=== PATIENT | female | born 1975 | race Caucasian/White ===

== ENCOUNTER 2017-01-19 13:41 | Emergency (ER) | payer SELFPAY ==
[~2017-01-19] VITALS: Ht 154.9 cm; Wt 69.9 kg
[2017-01-19 14:24] VITALS: BP 145/85
--- NOTE | 2017-01-19 16:19 | ED EENT ---
History of Present Illness General Chief Complaint: Dental Problems/Pain Stated Complaint: L SIDE DENTAL PAIN Nursing Triage Note: PT C/O L LOWER BACK TOOTH PAIN AND SWELLING. Source: patient Exam Limitations: no limitations History of Present Illness Time seen by provider: 16:19 Initial Comments 41-year-old female patient presents to the emergency department complains of left lower dental pain and swelling of the gums. Reports 2 weeks ago she remembers a chip of the tooth coming off. Since then has had increasing pain and swelling. Timing/Duration: abrupt Location: dental Prearrival Treatment: over the counter meds Modifying Factors: Worse With Other (worse with cold liquids and foods) Allergies and Home Medications Allergies Coded Allergies: hydrocodone (Verified Adverse Reaction, Unknown, n/v, 01/19/17) Review of Systems Constitutional: No chills, No fever, No malaise Eyes: No Symptoms Reported Ears: No Symptoms Reported Nose: no symptoms reported Mouth: see HPI, pain, swelling Throat: denies pain, denies swelling Respiratory: no symptoms reported Cardiovascular: no symptoms reported Gastrointestinal: No abdominal pain, No diarrhea, loss of appetite, No nausea, No vomiting Skin: no symptoms reported Neurological: No Symptoms Reported All Other Systems Reviewed Negative Unless Noted: Yes (Negative excepted noted.) Past Syaeghe-Iiuudx-Wxnddq Hx Patient Social History Alcohol Use: Denies Use Recreational Drug Use: No Smoking Status: Current Everyday Smoker Type Used: Cigarettes 2nd Hand Smoke Exposure: Yes Recent Foreign Travel: No Contact w/Someone Who Travel: No Recent Infectious Disease Expo: No Recent Hopitalizations: No Physical Abuse: No Sexual Abuse: No Seasonal Allergies Seasonal Allergies: No Surgeries History of Surgeries: Yes Surgeries: Gallbladder Respiratory History of Respiratory Disorde: No Cardiovascular History of Cardiac Disorders: No Neurological History of Neurological Disord: No Gastrointestinal History of Gastrointestinal Di: No Psychosocial Suicide Risk Score: 0 Reviewed Nursing Assessment Reviewed/Agree w Nursing PMH: Yes Family Medical History Significant Family History: No Pertinent Family Hx Physical Exam Vital Signs Vital Sign - Last 12Hours 01/19/17 14:24 Temp 98.2 Pulse 75 Resp 16 B/P (MAP) 145/85 Pulse Ox 97 O2 Delivery Room Air General Appearance: WD/WN, no apparent distress Eyes: bilateral eye normal inspection, bilateral eye PERRL, bilateral eye EOMI Ears: bilateral ear auricle normal, bilateral ear canal normal, bilateral ear TM normal Nose: normal inspection Mouth/Throat: pharynx normal, dental tenderness (left lower dental tenderness with swelling of the gums. 1/2 of the filling missing from tooth #20 (left lower)), No excessive drooling, mandibular swelling (focal area of swelling over the left mandible at the location of dental infection.), No tonsillar swelling, No trismus, No uvula swelling, No voice changes Neck: full range of motion, supple, lymphadenopathy (R), lymphadenopathy (L) ( anterior cervical lymphadenopathy, tender to palpation.) Cardiovascular: regular rate, rhythm, no murmur Respiratory: lungs clear, normal breath sounds, no respiratory distress, no accessory muscle use Neurologic/Psychiatric: alert, normal mood/affect, oriented x 3 Skin: normal color, warm/dry Progress/Results/Core Measures Results/Orders My Orders Orders - SONG PÉREZ Ketorolac Injection (Toradol Injection) (01/19/17 16:31) Tramadol Tablet (Ultram Tablet) (01/19/17 16:31) Rocephin 1000mg Im (01/19/17 16:45) Lidocaine 1% Injection (Xylocaine 1% Inj (01/19/17 16:45) Vital Signs/I&O Vital Sign - Last 12Hours 01/19/17 14:24 Temp 98.2 Pulse 75 Resp 16 B/P (MAP) 145/85 Pulse Ox 97 O2 Delivery Room Air Blood Pressure Mean: 105 Departure Impression Impression: Primary Impression: Dental infection Additional Impression: Dental caries Disposition: 01 HOME, SELF-CARE Condition: Improved Departure-Patient Inst. Decision time for Depature: 16:38 Referrals: NO,LOCAL PHYSICIAN (PCP/Family) Primary Care Physician Patient Instructions: Tooth Abscess (DC), Dental Pain (DC) Add. Discharge Instructions: All discharge instructions reviewed with patient and/or family. Voiced understanding. Medications as instructed. Tylenol Extra Strength over-the- counter as directed for pain. Ibuprofen 800 mg by mouth every 8 hours as needed for pain. Ice packs or heating pads as needed for pain. Room temperature liquids. Follow-up with the dentist of your choice for recheck and dental repair. Return to the emergency department for worsened symptoms or any other concerns. Lidocaine with benzocaine gauze pads: Place 1 pad between the affected teeth and bite down gently for 5-10 minutes. Repeat 4 times daily as needed for dental pain. Do not lie down or fall asleep with gauze pads in your mouth due to risk of choking, intestinal obstruction, and . Scripts Ondansetron (Ondansetron Odt) 8 Mg Tab.rapdis 8 MG PO Q6H Y for NAUSEA/VOMITING-1ST LINE, #10 TAB 0 Refills Prov: SONG PÉREZ 01/19/17 Tramadol HCl (Tramadol HCl) 50 Mg Tablet 50 MG PO Q4H Y for pain, #20 TAB 0 Refills Prov: SONG PÉREZ 01/19/17 Amoxicillin (Amoxicillin) 500 Mg Capsule 1000 MG PO Q8H, #60 CAP 0 Refills Prov: SONG PÉREZ 01/19/17 Work/School Note: Local Medical Staff Listing, Work Release Form Date Seen in the Emergency Department: Jan 19, 2017 Return to Work: Jan 21, 2017 Restrictions: No Restrictions Images Head/Face 1 - Swelling, Tenderness Mouth/Nose 1 - Caries, Swelling, Tenderness SONG PÉREZ Jan 19, 2017 16:19
[2017-01-19] MEDS ORDERED: KETOROLAC 60 MG/2 ML VIAL IM STA (16:31)
[2017-01-19] MEDS ORDERED: ONDA8TAB13 PO (16:39)
[2017-01-19] MEDS ORDERED: TRAM50TA2 PO (16:39)
[2017-01-19] MEDS ORDERED: AMOX500C2 PO (16:39)
[2017-01-19] MEDS ORDERED: LIDOCAINE 1% INJ 20 ML (XYLOCAINE) VIAL INJ ONE (16:45)
[2017-01-19] MEDS ORDERED: LIDOCAINE 2% VISCOUS 15 ML UDC PO ONE (16:45)
[2017-01-19] MEDS ORDERED: HURRICAINE EXT TUBE (BENZOCAINE) XX ONE (16:45)
[2017-01-19] MEDS ORDERED: cefTRIAXone 1 GM (ROCEPHIN) VIAL IM ONE (16:45)
--- OUTSIDE RECORDS SUMMARY | 2017-01-20 11:42 | XMS REPORT | Continuity of Care Document ---
Author Author [facility] Organization [facility] Address [address] [place] [id number] Phone Unavailable Care Team Providers Care Consumer Marketing Analyst Name Role Phone DOCTOR, NONDECLARED PCP Unavailable Chief Complaint and Reason for Visit Chief Complaint Resp/Flu/Cold Symptoms Reason for Visit [id number] Impacted cerumen of left ear Problems Active Problems Medical Problem Onset Date Status Eustachian tube dysfunction Unknown Acute Impacted cerumen of left ear Unknown Acute Viral syndrome Unknown Acute Medications Current Home Medications Medication Dose Units Route Directions Days/Qty Instructions Start Date Meclizine Hcl 25 Mg 25 Mg Oral Three (3) Times A Day 30 08/28/16 Social History Social History Problem Response Recorded Date/Time Alcohol use None 08/28/2016 10:37am Recreational drug use None 08/28/2016 10:37am Query Response Start Date Stop Date Smoking Status Current Every Day Smoker Hospital Discharge Instructions No hospital discharge instructions. Plan of Care Discharge Date 08/28/16 11:39am Disposition Home Condition at Discharge Improved Instructions/Education Provided Cerumen Impaction (ED) Viral Syndrome (ED) Eustachian Tube Dysfunction (GEN) Forms Provided Work Release Prescriptions See Medication Section Referrals YANIRA ANDINO MD - 1-3 Days Additional Instructions/Education Push fluids. Rest. Mucinex P. Afrin nasal spray twice a day for 3 days only. If not improving in 2-3 days begin Augmentin. Take Antivert for dizziness. Functional Status No functional status results. Allergies, Adverse Reactions, Alerts No known allergies. Immunizations No immunization records. Vital Signs Acute Vital Signs Vital Response Date/Time Blood Pressure 114/74 mm Hg 08/28/2016 11:35am Height 5 ft 2 in Weight 169 lb Body Mass Index 31.0 kg/m^2 Results No known relevant diagnostic tests, laboratory data and/or discharge summary. Procedures No known history of procedures. Encounters Encounter Location Arrival/Admit Date Discharge/Depart Date Attending Provider Departed Emergency Room [facility] 08/28/16 10:30am 08/28/16 11:39am OLIVIA CARRASCO MD Recent Diagnosis
== END 2017-01-19 17:05 | disposition home or self-care (01) ==
LOC: ER 13:44
DX: K02.9 Dental caries, unspecified (principal); K04.7 Periapical abscess without sinus; F17.210 Nicotine dependence, cigarettes, uncomplicated
CPT/HCPCS: 96372; 99282

== ENCOUNTER 2017-09-29 13:28 | Emergency (ER) | payer SELFPAY ==
[~2017-09-29] VITALS: Ht 154.9 cm; Wt 72.6 kg
[~2017-09-29 13:28] MED LIST: AMOX500C2 PO; ONDA8TAB13 PO; TRAM50TA2 PO
--- OUTSIDE RECORDS SUMMARY | 2017-09-29 13:37 | XMS REPORT | Continuity of Care Document ---
Author Author [facility] Address Unknown Phone Unavailable Allergies Active Description Code Type Severity Reaction Onset Reported/Identified Relationship to Patient Clinical Status Yes No Known Allergies [id number] Drug Allergy N/A N/A 12/23/2015 Yes No Known Allergies [id number] Drug Allergy Unknown N/A 08/28/2016 Yes hydrocodone [id number] Drug Allergy Unknown n/v 01/19/2017 Medications There is no data. Problems Date Dx Coded Attending Type Code Diagnosis Diagnosed By 12/29/2015 Gil, Nora OT H61.23 12/29/2015 Srna, Nora OT J02.9 12/29/2015 Srna, Nora OT J30.2 12/29/2015 Srna, Nora OT J44.9 01/24/2016 Geovanna Almanza OT F17.210 01/24/2016 Geovanna Almanza OT J44.9 01/24/2016 Geovanna Almanza OT R06.02 01/24/2016 Geovanna Almanza OT Z79.899 08/28/2016 OLIVIA CARRASCO MD B34.9 08/28/2016 OLIVIA CARRASCO MD F17.200 08/28/2016 OLIVIA CARRASCO MD Other H61.22 08/28/2016 OLIVIA CARRASCO MD H69.82 01/19/2017 SONG JIANG Ot F17.210 NICOTINE DEPENDENCE, CIGARETTES, UNCOMPL 01/19/2017 SONG JIANG Ot K02.9 DENTAL CARIES, UNSPECIFIED 01/19/2017 SONG JIANG Ot K04.7 PERIAPICAL ABSCESS WITHOUT SINUS 01/19/2017 SONG JIANG Ot K08.89 OTHER SPECIFIED DISORDERS OF TEETH AND S Procedures There is no data. Results Test Result Range URINALYSIS POC - 12/23/15 21:29 APPEARANCE Clear Clear COLOR Yellow PH URINE POC 6.5 5.0-8.0 SPECIFIC GRAVITY UR POC 1.025 <1.030 GLUCOSE URINE POC Negative mg/dL Negative BLOOD URINE POC Negative Negative KETONES URINE POC 15 mg/dL Negative PROTEIN UR QUAL POC Trace mg/dL Negative BILIRUBIN URINE POC Negative Negative UROBILINOGEN URINE POC 0.2 mg/dL <2.0 LEUKOCYTE ESTERASE UR POC Negative Negative NITRITE URINE POC Negative Negative LIPASE - 12/23/15 22:34 LIPASE 45 U/L 22-51 Encounters ACCT No. Visit Date/Time Discharge Status Pt. Type Provider Facility Loc./Unit Complaint [id number] 05/02/2016 11:39:00 05/02/2016 12:07:00 DIS Emergency [facility] POSS SINUS [id number] 04/30/2016 17:21:00 04/30/2016 18:45:00 [facility] [id number] 04/25/2016 15:31:00 04/25/2016 16:21:00 DIS Emergency [facility] POSS RT EAR INFECTION [id number] 03/14/2016 18:24:00 03/14/2016 19:07:00 [facility] [id number] 02/07/2016 12:42:00 02/07/2016 23:59:59 CLS Preadmit [id number] 01/24/2016 15:58:00 01/24/2016 17:25:00 DIS Emergency [facility] COPD/SOA [id number] 12/29/2015 11:28:00 12/29/2015 12:40:00 [facility] [id number] 12/23/2015 21:55:00 12/23/2015 23:29:00 [facility] [id number] 08/28/2016 10:30:00 08/28/2016 11:39:00 DIS Emergency DANILO PARK, OLIVIA Jeong [facility] ER [id number] 01/19/2017 13:44:00 01/19/2017 17:05:00 DIS Emergency SONG JIANG [facility] ER L SIDE DENTAL PAIN
--- OUTSIDE RECORDS SUMMARY | 2017-09-29 13:37 | XMS REPORT ---
Author Author KACIE KIM [facility] Address Unknown Care Team Providers Care Information Systems Administrator Name Role Phone KACIE KIM Unavailable PROBLEMS Unknown Problems ALLERGIES No Known Allergies ENCOUNTERS Encounter Location Date Diagnosis [facility] [id number], [place] [phone] Jan, [facility] [id number] [place] [id number] Jan, Dental examination Z01.20 [facility] [address], [place] [phone] Dec, Dental examination Z01.20 IMMUNIZATIONS No Known Immunizations SOCIAL HISTORY Never Assessed REASON FOR VISIT PLAN OF CARE Activity Details Follow Up prn Reason:zenobia/hygiene VITAL SIGNS Blood pressure systolic 104 mmHg 2017-01-07 Blood pressure diastolic 55 mmHg 2017-01-07 MEDICATIONS Unknown Medications RESULTS No Results PROCEDURES Procedure Date Ordered Result Body Site LTD ORAL EVALUATION - PROBLEM FOCUS Jan 07, 2017 INTRAORL-PERIAPICAL 1 FILM [id number] Jan 07, 2017 BITEWING - SINGLE FILM Jan 07, 2017 INSTRUCTIONS MEDICATIONS ADMINISTERED No Known Medications MEDICAL (GENERAL) HISTORY Type Description Date Surgical History gallblader removed Hospitalization History just from surgery
--- OUTSIDE RECORDS SUMMARY | 2017-09-29 13:37 | XMS REPORT ---
Author Author KACIE KIM [facility] Address Unknown Care Team Providers Care Incoming Inspector Name Role Phone KACIE KIM Unavailable PROBLEMS Unknown Problems ALLERGIES No Known Allergies ENCOUNTERS Encounter Location Date Diagnosis [facility] [id number] [place] [phone] Jan, [facility] [id number] [place] [phone] Jan, Dental examination Z01.20 [facility] [address] [place] [id number] Dec, Dental examination Z01.20 IMMUNIZATIONS No Known Immunizations SOCIAL HISTORY Never Assessed REASON FOR VISIT walk in-swelling PLAN OF CARE Activity Details Follow Up prn Reason:referral VITAL SIGNS Blood pressure systolic 149 mmHg 2017-01-24 Blood pressure diastolic 89 mmHg 2017-01-24 MEDICATIONS Unknown Medications RESULTS No Results PROCEDURES Procedure Date Ordered Result Body Site LTD ORAL EVALUATION - PROBLEM FOCUS Jan 24, 2017 INSTRUCTIONS MEDICATIONS ADMINISTERED No Known Medications MEDICAL (GENERAL) HISTORY Type Description Date Surgical History gallblader removed Hospitalization History just from surgery
--- NOTE | 2017-09-29 13:46 | ED EENT ---
History of Present Illness General Chief Complaint: Dental Problems/Pain Stated Complaint: TOOTH HURTING /HEAD HURTING/EAR HURTING Source: patient Exam Limitations: no limitations History of Present Illness Date Seen by Provider: September 29, 2017 Time Seen by Provider: 13:41 Initial Comments To ER with c/o right upper dental pain x1 week with right sided facial pain, ear pain. no swelling, no fevers. Has dental appointment next friday10/10/17 Timing/Duration: abrupt Severity: moderate Location: facial, dental Allergies and Home Medications Allergies Coded Allergies: hydrocodone (Verified Adverse Reaction, Unknown, n/v, 01/19/17) Home Medications Amoxicillin 500 Mg Capsule, 1,000 MG PO Q8H Prescribed by: SONG PÉREZ on 01/19/17 1639 Ondansetron 8 Mg Tab.rapdis, 8 MG PO Q6H PRN for NAUSEA/VOMITING-1ST LINE Prescribed by: SONG PÉREZ on 01/19/17 163 Tramadol HCl 50 Mg Tablet, 50 MG PO Q4H PRN for pain Prescribed by: SONG PÉREZ on 01/19/17 1639 Patient Home Medication List Home Medication List Reviewed: Yes Review of Systems Constitutional: see HPI Eyes: No Symptoms Reported Ears: No Symptoms Reported Nose: no symptoms reported Mouth: see HPI Throat: no symptoms reported Respiratory: no symptoms reported Musculoskeletal: no symptoms reported Past Wsimwtg-Mwpfdo-Ydnxth Hx Patient Social History Type Used: Cigarettes 2nd Hand Smoke Exposure: Yes Recent Foreign Travel: No Contact w/Someone Who Travel: No Recent Hopitalizations: No Seasonal Allergies Seasonal Allergies: No Past Medical History Surgeries: Yes Gallbladder Respiratory: No Cardiac: No Neurological: No Gastrointestinal: No Family Medical History No Pertinent Family Hx Physical Exam General Appearance: WD/WN, no apparent distress Eyes: bilateral eye normal inspection, bilateral eye PERRL, bilateral eye EOMI Ears: bilateral ear auricle normal, bilateral ear canal normal, bilateral ear TM normal Mouth/Throat: normal mouth inspection, pharynx normal, other (carious and fractured right upper molar. no fluctuant abscess. There) Neck: non-tender, full range of motion Cardiovascular: regular rate, rhythm, no murmur Gastrointestinal: normal bowel sounds, non tender Neurologic/Psychiatric: alert, normal mood/affect, oriented x 3 Skin: normal color, warm/dry Departure Impression Primary Impression: Dental caries Disposition: HOME, SELF-CARE Condition: Stable Departure-Patient Inst. Decision time for Depature: 13:44 Referrals: NO,LOCAL PHYSICIAN (PCP/Family) Primary Care Physician Patient Instructions: Dental Pain (DC) Add. Discharge Instructions: 1. Antibiotics as directed 2. Keep your dental appointment. 3. When pain medication runs out, use tylenol, motrin, and orajel. All discharge instructions reviewed with patient and/or family. Voiced understanding. Scripts Amoxicillin (Amoxicillin) 500 Mg Capsule 500 MG PO TID, #21 CAP Prov: ADELIA MOJICA APRN 09/29/17 Tramadol HCl (Ultram) 50 Mg Tablet 50 MG PO Q6H PRN for PAIN-MODERATE TO SEVERE, #14 TAB Do not fill unless amoxicillin is also filled. Prov: ADELIA MOJICA APRN 09/29/17 ADELIA MOJICA APRN September 29, 2017 13:46
[2017-09-29] MEDS ORDERED: AMOX500C2 PO (13:50)
[2017-09-29] MEDS ORDERED: TRAM-42 PO (13:50)
[2017-09-29 14:15] VITALS: BP 106/79
[2017-09-29] MEDS ORDERED: KETOROLAC 60 MG/2 ML VIAL IM ONE (14:15)
== END 2017-09-29 14:02 | disposition home or self-care (01) ==
LOC: EDUNIT# 13:28 → ER 13:34
DX: K02.9 Dental caries, unspecified (principal); Z88.5 Allergy status to narcotic agent; Z77.22 Contact with and (suspected) exposure to environmental tobacco smoke (acute) (chronic)
CPT/HCPCS: 96372; 99284

== ENCOUNTER 2017-11-12 05:36 | Emergency (ER) | payer SELFPAY ==
[~2017-11-12] VITALS: Ht 154.9 cm; Wt 72.6 kg
[~2017-11-12 05:36] MED LIST changes: +TRAM-42 PO
--- OUTSIDE RECORDS SUMMARY | 2017-11-12 05:41 | XMS REPORT | Continuity of Care Document ---
Author Author [facility] Address Unknown Phone Unavailable Allergies Active Description Code Type Severity Reaction Onset Reported/Identified Relationship to Patient Clinical Status Yes No Known Allergies [id number] Drug Allergy N/A N/A 12/23/2015 Yes No Known Allergies [id number] Drug Allergy Unknown N/A 08/28/2016 Yes hydrocodone [id number] Drug Allergy Unknown n/v 01/19/2017 Medications There is no data. Problems Date Dx Coded Attending Type Code Diagnosis Diagnosed By 12/29/2015 Gil Nora OT H61.23 12/29/2015 Srna, Nora OT [...] OTHER SPECIFIED DISORDERS OF TEETH AND S 09/29/2017 ADELIA MOJICA APRN Ot K02.9 DENTAL CARIES, UNSPECIFIED 09/29/2017 ADELIA MOJICA APRN Ot K08.89 OTHER SPECIFIED DISORDERS OF TEETH AND S 09/29/2017 ADELIA MOJICA APRN Ot Z77.22 CNTCT W AND EXPSR TO ENVIRON TOBACCO SMO 09/29/2017 ADELIA MOJICA APRN Ot Z88.5 ALLERGY STATUS TO NARCOTIC AGENT STATUS 10/01/2017 ADELIA MOJICA APRN Ot K02.9 DENTAL CARIES, UNSPECIFIED 10/01/2017 ADELIA MOJICA APRN Ot K08.89 OTHER SPECIFIED DISORDERS OF TEETH AND S 10/01/2017 ADELIA MOJICA APRN Ot Z77.22 CNTCT W AND EXPSR TO ENVIRON TOBACCO SMO 10/01/2017 ADELIA MOJICA APRN Ot Z88.5 ALLERGY STATUS TO NARCOTIC AGENT STATUS 10/05/2017 ADELIA MOJICA APRN Ot K02.9 DENTAL CARIES, UNSPECIFIED 10/05/2017 ADELIA MOJICA APRN Ot K08.89 OTHER SPECIFIED DISORDERS OF TEETH AND S 10/05/2017 ADELIA MOJICA APRN Ot Z77.22 CNTCT W AND EXPSR TO ENVIRON TOBACCO SMO 10/05/2017 ADELIA MOJICA APRN Ot Z88.5 ALLERGY STATUS TO NARCOTIC AGENT STATUS Procedures There is no data. Results Test [...] Status Pt. Type Provider Facility Loc./Unit Complaint [id number] 05/02/2016 11:39:00 05/02/2016 12:07:00 DIS Emergency Geovanna Almanza [facility] POSS SINUS [id number] 04/30/2016 17:21:00 04/30/2016 18:45:00 DIS Emergency Ade Paul [facility] POSS SINUS INFECTION [id number] 04/25/2016 15:31:00 04/25/2016 16:21:00 DIS [facility] [id number] 03/14/2016 18:24:00 03/14/2016 19:07:00 DIS [facility] [id number] 02/07/2016 12:42:00 02/07/2016 23:59:59 [facility] [id number] 01/24/2016 15:58:00 01/24/2016 17:25:00 [facility]A [id number] 12/29/2015 11:28:00 12/29/2015 12:40:00 DIS Emergency Nora Cordero [facility] CONGESTION, SORE THROAT [id number] 12/23/2015 21:55:00 12/23/2015 23:29:00 DIS Emergency Alistair Quintanillatchen [facility] LEFT SIDE PAIBD PAIN [id number] 08/28/2016 10:30:00 08/28/2016 11:39:00 DIS Emergency OLIVIA CARRASCO MD [facility] ER [id number] 09/29/2017 13:34:00 09/29/2017 14:02:00 DIS Emergency ADELIA MOJICA APRN [facility] ER TOOTH HURTING /HEAD HURTING/EAR HURTING [id number] 01/19/2017 13:44:00 01/19/2017 17:05:00 DIS Emergency SONG JIANG [facility] ER L SIDE DENTAL PAIN [id number] 10/07/2017 11:00:00 10/07/2017 23:59:59 CLS Outpatient GELACIO MCGOWAN [facility]
[2017-11-12] MEDS ORDERED: TETANUS,DIPTH,PERTUSS P/F (BOOSTRIX) 0.5 ML VIAL IM STA (06:08)
[2017-11-12] MEDS ORDERED: LIDOCAINE/EPI 1%-1:100,000 (XYLOCAINE) 20ML INJ STA (06:08)
[2017-11-12] MEDS ORDERED: LIDOCAINE/EPI 2% 1:100,00 (XYLOCAINE) 20 ML VIAL ONE (06:12)
--- NOTE | 2017-11-12 06:12 | ED Lower Extremity ---
General Chief Complaint: Laceration Stated Complaint: RT LEG LAC W/ MEDICAL RADIATION DOSIMETRIST Nursing Triage Note: patient reports cutting her R thigh leg with a hand box folder while trying to move. Nursing Sepsis Screen: No Definite Risk Source: patient Exam Limitations: no limitations (BRAD LACEY MD) History of Present Illness Date Seen by Provider: Nov 12, 2017 Time Seen by Provider: 06:00 Initial Comments Here with report of laceration to the right upper leg on the lateral aspect. She was reportedly cutting a box with a hand box folder when she caught herself with that. She has approximately 4 cm laceration. Denies other injuries. Unsure of tetanus status. Onset: just prior to arrival Severity: mild Pain/Injury Location: right thigh Method of Injury: incised Modifying Factors: Improves With Immobilization; Worse With Movement (BRAD LACEY MD) Allergies and Home Medications Allergies Coded Allergies: hydrocodone (Verified Adverse Reaction, Unknown, n/v, 01/19/17) Home Medications Amoxicillin 500 Mg Capsule, 1,000 MG PO Q8H Prescribed by: SONG PÉREZ on 01/19/17 1639 Amoxicillin 500 Mg Capsule, 500 MG PO TID Prescribed by: ADELIA MOJICA on 09/29/17 1350 Ondansetron 8 Mg Tab.rapdis, 8 MG PO Q6H PRN for NAUSEA/VOMITING-1ST LINE Prescribed by: SONG PÉREZ on 01/19/17 1639 Tramadol HCl 50 Mg Tablet, 50 MG PO Q4H PRN for pain Prescribed by: SONG PÉREZ on 01/19/17 1639 Tramadol HCl 50 Mg Tablet, 50 MG PO Q6H PRN for PAIN-MODERATE TO SEVERE Do not fill unless amoxicillin is also filled. Prescribed by: ADELIA MOJICA on 09/29/17 1350 Patient Home Medication List Home Medication List Reviewed: Yes (BRAD LACEY MD) Constitutional: see HPI; No chills, No fever Respiratory: no symptoms reported Cardiovascular: no symptoms reported Skin: see HPI, lesions Psychiatric/Neurological: No Symptoms Reported (BRAD LACEY MD) Past Qrpnnta-Chshiu-Todagj Hx Past Med/Social Hx: Reviewed Nursing Past Med/Soc Hx (BRAD LACEY MD) Patient Social History Alcohol Use: Denies Use Recreational Drug Use: No Smoking Status: Current Everyday Smoker Type Used: Cigarettes 2nd Hand Smoke Exposure: Yes Recent Foreign Travel: No Contact w/Someone Who Travel: No Recent Infectious Disease Expo: No Recent Hopitalizations: No (BRAD LACEY MD) Seasonal Allergies Seasonal Allergies: No (BRAD LACEY MD) Past Medical History Surgeries: Yes Gallbladder Respiratory: No Cardiac: No Neurological: No Genitourinary: No Gastrointestinal: No Musculoskeletal: No Endocrine: No HEENT: No Cancer: No Psychosocial: No Integumentary: No Blood Disorders: No (BRAD LACEY MD) Family Medical History Reviewed Nursing Family Hx (BRAD LACEY MD) No Pertinent Family Hx (BRAD LACEY MD) Physical Exam Vital Signs Vital Signs - First Documented 11/12/17 05:40 Temp 98.2 Pulse 67 Resp 18 B/P (MAP) 101/51 (68) Pulse Ox 97 ([place] STUDENT) Vital Signs Capillary Refill : Less Than 3 Seconds (BRAD LACEY MD) General Appearance: WD/WN, no apparent distress Cardiovascular: regular rate, rhythm, no murmur Respiratory: lungs clear, normal breath sounds Legs: right leg other (4 cm laceration to the lateral aspect of the mid thigh. Bleeding controlled.) Neurologic/Psychiatric: alert, normal mood/affect, oriented x 3 Skin: warm/dry, other (laceration as documented above) (BRAD LACEY MD) Procedures/Interventions Wound Location: Lower Extremities Other Wound Location lateral aspect of the right thigh Wound's Depth, Shape: superficial, linear Wound Explored: clean Irrigated w/ Saline (ccs): 200 Betadine Prep?: No Anesthesia: Lidocaine w/ Epi Volume Anesthetic (ccs): 5 Suture: Prolene Suture Size: 4-0 Number of Sutures: 6 Progress The laceration was cleaned and irrigated with chlorhexidine and normal saline approximately 200 mL. The area was then anesthetized with 2% lidocaine with epi. The laceration was closed with 6 simple interrupted sutures. A dressing was applied of triple antibiotic ointment and a Band-Aid. ([place] STUDENT) Progress/Results/Core Measures Results/Orders Medications Given in ED Current Medications Medications Dose Ordered Sig/Ayana Route Start Time Stop Time Status Last Admin Dose Admin Lidocaine/ Epinephrine 20 ml ONCE ONCE INJ 11/12/17 06:15 11/12/17 06:16 DC 11/12/17 06:17 5 ML ([place] STUDENT) Vital Signs/I&O 11/12/17 05:40 Temp 98.2 Pulse 67 Resp 18 B/P (MAP) 101/51 (68) Pulse Ox 97 ([place]) Blood Pressure Mean: 68 Progress Progress Note : Progress Note Seen and evaluated. Suture repair by [place] APRN under my direct supervision. See procedure note. Tetanus updated. Discharged home with return precautions. Patient verbalize understanding of instructions and agreement with plan. (BRAD LACEY MD) Departure Impression Primary Impression: Laceration of right thigh without complication Disposition: HOME, SELF-CARE Condition: Improved Departure-Patient Inst. Decision time for Depature: 06:14 (BRAD LACEY MD) Referrals: NO,LOCAL PHYSICIAN (PCP/Family) Primary Care Physician Patient Instructions: Laceration Repair With Stitches (DC) Add. Discharge Instructions: All discharge instructions reviewed with patient and/or family. Voiced understanding. Sutures out in 10-14 days. Return to the ER for suture removal. You may use antibiotic ointment and Band-Aid over wound for the next 5 days as needed and then cover with dry Band-Aid. It is okay to shower but did not soak wound in any body of water including bathtub, pool, leiva or stream. Return for worse pain, fever, red streaks up the leg, foul-smelling drainage or other concerns as needed. BRAD LACEY MD Nov 12, 2017 06:12 [place] STUDENT Nov 12, 2017 06:41
[2017-11-12] MEDS ORDERED: LIDOCAINE/EPI 2% 1:100,00 (XYLOCAINE) 20 ML VIAL INJ ONE (06:15)
[2017-11-12 06:37] VITALS: BP 101/51
== END 2017-11-12 06:37 | disposition home or self-care (01) ==
LOC: EDUNIT# 05:36 → ER 05:38
DX: S71.111A Laceration without foreign body, right thigh, initial encounter (principal); F17.210 Nicotine dependence, cigarettes, uncomplicated; Z98.890 Other specified postprocedural states; Z88.6 Allergy status to analgesic agent; Z77.22 Contact with and (suspected) exposure to environmental tobacco smoke (acute) (chronic); W26.0XXA Contact with knife, initial encounter
CPT/HCPCS: 12032; 90471; 90715

== ENCOUNTER 2017-11-12 19:19 | Emergency (ER) | payer SELFPAY ==
[~2017-11-12] VITALS: Ht 154.9 cm; Wt 72.6 kg
[2017-11-12] MEDS ORDERED: LIDOCAINE 2% 20 ML (XYLOCAINE) VIAL ONE (19:50)
--- NOTE | 2017-11-12 20:05 | ED Lower Extremity ---
General Chief Complaint: Laceration Stated Complaint: STITCHES CAME OUT Source: patient Exam Limitations: no limitations History of Present Illness Date Seen by Provider: Nov 12, 2017 Time Seen by Provider: 20:01 Initial Comments to ER with reports that her stitches have come out. 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 She had the stitches placed at about 06 30. 2 of the stitches have come out within the past hour.. Onset: just prior to arrival Severity: mild Pain/Injury Location: right thigh Allergies and Home Medications Allergies Coded Allergies: hydrocodone (Verified Adverse Reaction, Unknown, n/v, 01/19/17) Home Medications Amoxicillin 500 Mg Capsule, 1,000 MG PO Q8H Prescribed by: SONG PÉREZ on 01/19/17 1639 Amoxicillin 500 Mg Capsule, 500 MG PO TID Prescribed by: ADELIA MOJICA on 09/29/17 1350 Ondansetron 8 Mg Tab.rapdis, 8 MG PO Q6H PRN for NAUSEA/VOMITING-1ST LINE Prescribed by: SONG PÉREZ on 01/19/17 1639 Tramadol HCl 50 Mg Tablet, 50 MG PO Q4H PRN for pain Prescribed by: SONG PÉREZ on 01/19/17 1639 Tramadol HCl 50 Mg Tablet, 50 MG PO Q6H PRN for PAIN-MODERATE TO SEVERE Do not fill unless amoxicillin is also filled. Prescribed by: ADELIA MOJICA on 09/29/17 1350 Patient Home Medication List Home Medication List Reviewed: Yes Constitutional: see HPI EENTM: see HPI Respiratory: no symptoms reported Cardiovascular: no symptoms reported Genitourinary: no symptoms reported Musculoskeletal: no symptoms reported Skin: see HPI Psychiatric/Neurological: No Symptoms Reported Past Pgyxhfb-Nowvpm-Htcgbr Hx Patient Social History Type Used: Cigarettes 2nd Hand Smoke Exposure: Yes Recent Foreign Travel: No Contact w/Someone Who Travel: No Recent Hopitalizations: No Seasonal Allergies Seasonal Allergies: No Past Medical History Surgeries: Yes Gallbladder Respiratory: No Cardiac: No Neurological: No Genitourinary: No Gastrointestinal: No Musculoskeletal: No Endocrine: No HEENT: No Cancer: No Psychosocial: No Integumentary: No Blood Disorders: No Family Medical History No Pertinent Family Hx Physical Exam Vital Signs Capillary Refill : General Appearance: WD/WN, no apparent distress HEENT: PERRL/EOMI, normal ENT inspection Neck: non-tender, full range of motion Respiratory: normal breath sounds, no respiratory distress, no accessory muscle use Gastrointestinal: normal bowel sounds, non tender Hips: bilateral hip non-tender, bilateral hip normal inspection, bilateral hip normal range of motion Legs: right leg other (laceration of the right lateral thigh with partial wound dehiscence. 3 of the stitches have come out. I reanesthetized with lidocaine and closed with 4 sutures.) Knees: bilateral knee non-tender, bilateral knee normal inspection, bilateral knee normal range of motion Ankles: bilateral ankle non-tender, bilateral ankle normal inspection, bilateral ankle normal range of motion Feet: bilateral foot non-tender, bilateral foot normal inspection, bilateral foot normal range of motion Neurologic/Psychiatric: alert, normal mood/affect, oriented x 3 Skin: normal color, warm/dry Procedures/Interventions Wound Location: Lower Extremities Wound Length (cm): 3 (3-4 cm) Wound's Depth, Shape: linear, sub Q Wound Explored: clean Anesthesia: 1% Lidocaine Volume Anesthetic (ccs): 2 Suture: Prolene Suture Size: 4-0 Number of Sutures: 4 Layer Closure?: 1 Number Deep Layer Sutures: 0 Progress anesthetized with 2 mL of 2% lidocaine without epinephrine scrubbed with chlorhexidine/saline solution, the sutures that had fallen out or replaced. There were 3 sutures that had all amount and these were replaced and an additional 4 suture was also placed size4-0 Prolene. Progress/Results/Core Measures Results/Orders My Orders Orders - ADELIA MOJICA APRN Lidocaine 2% Injection 20 Ml (Xylocaine (11/12/17 19:50) Medications Given in ED Current Medications Medications Dose Ordered Sig/Ayana Route Start Time Stop Time Status Last Admin Dose Admin Lidocaine HCl 20 ml STK-MED ONCE .ROUTE 11/12/17 19:50 11/12/17 19:52 DC 11/12/17 19:54 20 ML Departure Impression Primary Impression: partial wound dehiscence Disposition: HOME, SELF-CARE Condition: Stable Departure-Patient Inst. Decision time for Depature: 20:04 Referrals: NO,LOCAL PHYSICIAN (PCP/Family) Primary Care Physician Patient Instructions: Laceration Repair With Stitches (DC) Add. Discharge Instructions: 1. Keep covered with a Band-Aid 2. Continue with all previous instructions given to you this morning during your visit. Return promptly to the emergency room for any redness or drainage that may indicate infection.All discharge instructions reviewed with patient and /or family. Voiced understanding. ADELIA MOJICA APRN Nov 12, 2017 20:05
[2017-11-12 20:10] VITALS: BP 110/66
--- OUTSIDE RECORDS SUMMARY | 2017-11-12 20:15 | XMS REPORT | Continuity of Care Document ---
Author Author [facility] Address Unknown Phone Unavailable Allergies Active Description Code Type Severity Reaction Onset Reported/Identified Relationship to Patient Clinical Status Yes No Known Allergies [id number] Drug Allergy N/A N/A 12/23/2015 Yes No Known Allergies [id number] Drug Allergy Unknown N/A 08/28/2016 Yes hydrocodone [id number] Drug Allergy Unknown n/v 01/19/2017 Medications There is no data. Problems Date Dx Coded Attending Type Code Diagnosis Diagnosed By 12/29/2015 Gil Nora OT H61.23 12/29/2015 Srna, Nora OT J02.9 12/29/2015 Srna, Nora OT J30.2 12/29/2015 Srna, Nora OT J44.9 01/24/2016 Geovanna Almanza OT F17.210 01/24/2016 Geovanna Almanza OT J44.9 01/24/2016 Geovanna Alamnza OT R06.02 01/24/2016 Geovanna Almanza OT Z79.899 [...] Status Pt. Type Provider Facility Loc./Unit Complaint [id number] 05/02/2016 11:39:00 05/02/2016 12:07:00 DIS Emergency Geovanna Almanza [facility] POSS SINUS [id number] 04/30/2016 17:21:00 04/30/2016 18:45:00 DIS Emergency Ade Paul [facility] POSS SINUS INFECTION [id number] 04/25/2016 15:31:00 04/25/2016 16:21:00 [facility] [id number] 03/14/2016 18:24:00 03/14/2016 19:07:00 DIS [facility] [id number] 02/07/2016 12:42:00 02/07/2016 23:59:59 [id number] 01/24/2016 15:58:00 01/24/2016 17:25:00 [facility] [id number] 12/29/2015 11:28:00 12/29/2015 12:40:00 DIS Emergency Nora Cordero [facility] CONGESTION, SORE THROAT [id number] 12/23/2015 21:55:00 12/23/2015 23:29:00 DIS Emergency Alistair Quintanillatchen [facility] LEFT SIDE PAIBD PAIN [id number] 08/28/2016 10:30:00 08/28/2016 11:39:00 DIS Emergency OLIVIA CARRASCO MD [facility] ER [id number] 09/29/2017 13:34:00 09/29/2017 14:02:00 DIS Emergency ADELIA MOJICA APRN [facility] ER TOOTH HURTING /HEAD HURTING/EAR HURTING [id number] 01/19/2017 13:44:00 01/19/2017 17:05:00 DIS Emergency SONG JIANG [facility] ER L SIDE DENTAL PAIN [id number] 10/07/2017 11:00:00 10/07/2017 23:59:59 CLS Outpatient GELACIO MCGOWAN [facility]
== END 2017-11-12 20:10 | disposition home or self-care (01) ==
LOC: EDUNIT# 19:19 → ER 19:20
DX: T81.33XA Disruption of traumatic injury wound repair, initial encounter (principal); Z77.22 Contact with and (suspected) exposure to environmental tobacco smoke (acute) (chronic); Z88.6 Allergy status to analgesic agent
CPT/HCPCS: 12031

== ENCOUNTER 2022-02-02 21:10 | Emergency (ER) | payer SELFPAY ==
[~2022-02-02] VITALS: Ht 158 cm; Wt 76.6 kg
[~2022-02-02 21:10] MED LIST changes: -TRAM50TA2 PO; +TRM50T PO
[2022-02-02 21:19] VITALS: BP 112/75
--- NOTE | 2022-02-02 21:42 | ED Integumentary General ---
General Chief Complaint: Bite-Animal/Human/Insect Stated Complaint: SPIDER BITE L LEG BEHIND KNEE Nursing Triage Note: REPORTS POSSIBLE SPIDER BITE BEHIND LEFT KNEE X1 DAY. Source: patient Exam Limitations: no limitations History of Present Illness Date Seen by Provider: Feb 02, 2022 Time Seen by Provider: 21:34 Initial Comments Patient concerned that she has a spider bite to left posterior knee yesterday. Had a friend that last year from a spider bite and is concerned that she has a brown spider bite. Did not actually see anything bite her. Had a blister to the area that she has popped. Denies further drainage from the area. Timing/Duration: yesterday Location: extremities Possible Cause: insect bite Modifying Factors: worse with scratching Associated Symptoms: blisters; No fever Allergies and Home Medications Allergies Coded Allergies: hydrocodone (Verified Adverse Reaction, Unknown, n/v, 01/19/17) Patient Home Medication List Home Medication List Reviewed: Yes Cephalexin (Cephalexin) 500 Mg Capsule, 500 MG PO BID Prescribed by: Irlanda Jesus on 02/02/224 Discontinued Medications Amoxicillin (Amoxicillin) 500 Mg Capsule, 1,000 MG PO Q8H Discontinued Reason: No Longer Taking Prescribed by: SONG PÉREZ on 01/19/171638 Last Action: Discontinued Amoxicillin (Amoxicillin) 500 Mg Capsule, 500 MG PO TID Discontinued Reason: No Longer Taking Prescribed by: ADELIA MOJICA on 09/29/17 1350 Last Action: Discontinued Ondansetron (Ondansetron Odt) 8 Mg Tab.rapdis, 8 MG PO Q6H PRN for NA USEA/VOMITING-1ST LINE Discontinued Reason: No Longer Taking Prescribed by: SONG PÉREZ on 01/19/17 163 Last Action: Discontinued Tramadol HCl (Tramadol HCl) 50 Mg Tablet, 50 MG PO Q4H PRN for pain Discontinued Reason: No Longer Taking Prescribed by: SONG PÉREZ on 01/19/17 163 Last Action: Discontinued Tramadol HCl (Ultram) 50 Mg Tablet, 50 MG PO Q6H PRN for PAIN-MODERATE TO SEVERE Discontinued Reason: No Longer Taking Prescribed by: ADELIA MOJICA on 09/29/17 1350 Last Action: Discontinued Review of Systems Review of Systems Constitutional: No chills, No fever Skin: lesions (left posterior knee); No pruritus, No rash All Other Systems Reviewed Negative Unless Noted: Yes Past Lvupqmh-Gpxbeh-Infyli Hx Patient Social History Tobacco Use?: Yes Substance use?: Yes Substance type: Marijuana Alcohol Use?: No Pt feels they are or have been: No Immunizations Up To Date First/Initial COVID19 Vaccinat: X3 Seasonal Allergies Seasonal Allergies: No Past Medical History Surgery/Hospitalization HX: CHOLECYSTECTOMY, RIGHT FINGER Surgeries: Yes Gallbladder Respiratory: No Cardiac: No Neurological: No Genitourinary: No Gastrointestinal: No Musculoskeletal: No Endocrine: No HEENT: No Cancer: No Psychosocial: No Integumentary: No Blood Disorders: No Family Medical History Reviewed Nursing Family Hx No Pertinent Family Hx Physical Exam Vital Signs Vital Signs - First Documented 02/02/22 21:19 Temp 36.5 Pulse 75 Resp 16 B/P (MAP) 112/75 (87) Pulse Ox 96 O2 Delivery Room Air Capillary Refill : Less Than 3 Seconds General Appearance: WD/WN, no apparent distress HEENT: PERRL/EOMI Extremities: normal range of motion, non-tender, pedal edema (bilateral (chronic for patient)) Neurologic/Psychiatric: alert, normal mood/affect, oriented x 3 Skin: No rash; other (papular lesion to left posterior knee that is crusted over, no drainage, mild erythema surrounding the area, no purplish/trivedi centered hue) Skin Problem Location: lower extremities Skin Problem Character: drainage, erythema, lesion, papules, tenderness Procedures/Interventions Suture Size: 4-0 Progress/Results/Core Measures Results/Orders Vital Signs/I&O 02/02/22 21:19 Temp 36.5 Pulse 75 Resp 16 B/P (MAP) 112/75 (87) Pulse Ox 96 O2 Delivery Room Air Blood Pressure Mean: 87 Progress Progress Note : Progress Note Patient with insect bite to left posterior knee. Does not have the appearance of brown spider bite. No active drainage. Mild erythema surrounding the area. Will go ahead and treat with antibiotics at this time. Reasons to return to the ER were discussed with patient. Departure Impression Primary Impression: Insect bites Qualified Codes: S80.262A - Insect bite (nonvenomous), left knee, initial encounter; W57.XXXA - Bitten or stung by nonvenomous insect and other nonvenomous arthropods, initial encounter Disposition: 01 HOME, SELF-CARE Condition: Stable Departure-Patient Inst. Decision time for Depature: 21:42 Referrals: NO,LOCAL PHYSICIAN (PCP/Family) Primary Care Physician Patient Instructions: Insect Bites and Stings (DC) Add. Discharge Instructions: 1. Home and rest. 2. Push fluids. 3. Alternate Tylenol/Ibuprofen as needed for pain. 4. Follow up with PCP as needed. 5. Start Cephalexin and take as directed until finished. 6. Return here if worse or concerns. All discharge instructions reviewed with patient and/or family. Voiced understanding. Scripts Cephalexin (Cephalexin) 500 Mg Capsule 500 MG PO BID, #14 CAP Prov: IRLANDA JESUS APRN 02/02/22 IRLANDA JESUS APRN Feb 02, 2022 21:42
[2022-02-02] MEDS ORDERED: CEPH500C PO (21:44)
[2022-02-02] MEDS ORDERED: CEPHALEXIN 250 MG (KEFLEX) CAP PO ONE (21:45)
== END 2022-02-02 21:51 | disposition home or self-care (01) ==
LOC: EDUNIT# 21:10 → ER 21:14
DX: S80.262A Insect bite (nonvenomous), left knee, initial encounter (principal); W57.XXXA Bitten or stung by nonvenomous insect and other nonvenomous arthropods, initial encounter
CPT/HCPCS: 99283

== ENCOUNTER 2022-11-04 09:48 | Emergency (ER) | payer BC ==
[~2022-11-04] VITALS: Ht 154.9 cm; Wt 78.0 kg
[~2022-11-04 09:48] MED LIST changes: +CEPH500C PO
[2022-11-04 11:07] LABS: BASOPHILS % (AUTO) 0 % (0-10); EOSINOPHILS # (AUTO) 0.1 10^3/uL (0.0-0.3); EOSINOPHILS % (AUTO) 2 % (0-10); HEMATOCRIT 40 % (35-52); HEMOGLOBIN 13.7 g/dL (11.5-16.0); LYMPHOCYTES # (AUTO) 2.3 10^3/uL (1.0-4.0); LYMPHOCYTES % (AUTO) 43 % (12-44); MEAN CORPUSCULAR HEMOGLOBIN 31 pg (25-34); MEAN CORPUSCULAR HGB CONC 35 g/dL (32-36); MEAN CORPUSCULAR VOLUME 89 fL (80-99); MEAN PLATELET VOLUME 9.2 fL (9.0-12.2); MONOCYTES # (AUTO) 0.3 10^3/uL (0.0-1.0); MONOCYTES % (AUTO) 6 % (0-12); NEUTROPHILS # (AUTO) 2.6 10^3/uL (1.8-7.8); NEUTROPHILS % (AUTO) 49 % (42-75); PLATELET COUNT 301 10^3/uL (130-400); WHITE BLOOD COUNT 5.4 10^3/uL (4.3-11.0)
[2022-11-04 11:08] LABS: BILIRUBIN,URINE NEGATIVE (NEGATIVE); CLARITY,URINE SL CLOUDY; COLOR,URINE RED; GLUCOSE, URINE (UA) NEGATIVE (NEGATIVE); KETONES,URINE NEGATIVE (NEGATIVE); LEUKOCYTE ESTERASE ,URINE TRACE (NEGATIVE); NITRITE,URINE NEGATIVE (NEGATIVE); PH,URINE 6.5 (5-9); PROTEIN,URINE 2+ (NEGATIVE)
--- NOTE | 2022-11-04 11:10 | ED GU-Female ---
General Chief Complaint: - Reproductive Stated Complaint: HEAVY VAGINAL BLEEDING Nursing Triage Note: PT AMBULATE TO ROOM 06 WITHOUT DIFFICULTY WITH C/O VAGINAL BLEEDING. PT REPORTS HEAVY VAGINAL BLEEDING SINCE FRIDAY. PT REPORTS SATURATING X1 PAD PER HOUR WITH LOTS OF BLOOD CLOTS. PT REPORTS SHE IS SCHEDULED FOR A HYSTERECTOMY ON 11/12/22 AND WAS TOLD TO COME TO ED TODAY FOR EXCESSIVE BLEEDING. Source: patient Exam Limitations: no limitations History of Present Illness Date Seen by Provider: Nov 04, 2022 Time Seen by Provider: 11:02 Initial Comments 46-year-old female presents to the ER with complaints of vaginal bleeding since 10/23/22. She reports that since last 11/01/2022, she has been saturating a pad every hour. She states she is passing several blood clots every time she goes to the restroom. Reports she has used the restroom twice here, and has had passed blood clots each time. She states she has never had vaginal bleeding like this before. Complains of weakness and shaking, lower abdominal pain, dizziness, 1 episode of nausea with dizziness. She is scheduled to have a hysterectomy on 11/12/2022 due to a prolapsed uterus. She denies fevers, chest pain, shortness of air, dysuria. Denies any past medical history, does not take any medications regularly. Allergies and Home Medications Allergies Coded Allergies: hydrocodone (Verified Adverse Reaction, Unknown, n/v, 01/19/17) Patient Home Medication List Home Medication List Reviewed: Yes Cephalexin (Cephalexin) 500 Mg Capsule, 500 MG PO BID Prescribed by: Irlanda Ward on 02/02/22 0680 Medroxyprogesterone Acetate (Medroxyprogesterone Acetate) 10 Mg Tablet, 10 MG PO DAILY Prescribed by: Mee Joshi on 11/04/22 1201 Review of Systems Review of Systems Constitutional: see HPI Past Kitugmw-Aifnos-Kstfgj Hx Patient Social History Tobacco Use?: Yes Tobacco type used: Cigarettes Smoking Status: Light Tobacco Smoker Smokeless Tobacco Frequency: Never a User Use of E-Cig and/or Vaping dev: No Use of E-Cig and/or Vaping Sixto: Never a User Substance use?: Yes Substance type: Marijuana Substance frequency: Daily Alcohol Use?: No Pt feels they are or have been: No Immunizations Up To Date First/Initial COVID19 Vaccinat: X3 Seasonal Allergies Seasonal Allergies: No Past Medical History Surgery/Hospitalization HX: CHOLECYSTECTOMY, RIGHT FINGER Surgeries: Yes Gallbladder Respiratory: No Cardiac: No Neurological: No Genitourinary: No Gastrointestinal: No Musculoskeletal: No Endocrine: No HEENT: No Cancer: No Psychosocial: No Integumentary: No Blood Disorders: No Family Medical History No Pertinent Family Hx Physical Exam Vital Signs Vital Signs - First Documented 11/04/22 09:58 Temp 35.8 Pulse 68 Resp 19 B/P (MAP) 115/86 (96) O2 Delivery Room Air Capillary Refill : Less Than 3 Seconds Height, Weight, BMI Height: 5'1.00" Weight: 160lbs. 0oz. [id number]; 32.00 BMI Method:Stated General Appearance: WD/WN, no apparent distress Neck: supple, normal inspection Cardiovascular: regular rate, rhythm Respiratory: lungs clear, normal breath sounds, no respiratory distress, no accessory muscle use Gastrointestinal: soft, tenderness (mid lower) Pelvic: normal external exam, vaginal bleeding Extremities: normal range of motion, normal inspection Neurologic/Psychiatric: alert, normal mood/affect Skin: normal color, warm/dry Procedures/Interventions Suture Size: 4-0 Progress/Results/Core Measures Suspected Sepsis SIRS Temperature: Pulse: 68 Respiratory Rate: 19 Laboratory Tests 11/04/22 10:10: White Blood Count 5.4 Blood Pressure 115 /86 Mean: 96 Laboratory Tests 11/04/22 10:10: Creatinine 0.73, Platelet Count 301, Total Bilirubin 0.2 Results/Orders Lab Results Laboratory Tests Test 11/04/22 10:10 11/04/22 10:20 Range/Units White Blood Count 5.4 4.3-11.0 10^3/uL Red Blood Count 4.44 3.80-5.11 10^6/uL Hemoglobin 13.7 11.5-16.0 g/dL Hematocrit 40 35-52 % Mean Corpuscular Volume 89 80-99 fL Mean Corpuscular Hemoglobin 31 25-34 pg Mean Corpuscular Hemoglobin Concent 35 32-36 g/dL Red Cell Distribution Width 13.4 10.0-14.5 % Platelet Count 301 130-400 10^3/uL Mean Platelet Volume 9.2 9.0-12.2 fL Immature Granulocyte % (Auto) 0 % Neutrophils (%) (Auto) 49 42-75 % Lymphocytes (%) (Auto) 43 12-44 % Monocytes (%) (Auto) 6 0-12 % Eosinophils (%) (Auto) 2 0-10 % Basophils (%) (Auto) 0 0-10 % Neutrophils # (Auto) 2.6 1.8-7.8 10^3/uL Lymphocytes # (Auto) 2.3 1.0-4.0 10^3/uL Monocytes # (Auto) 0.3 0.0-1.0 10^3/uL Eosinophils # (Auto) 0.1 0.0-0.3 10^3/uL Basophils # (Auto) 0.0 0.0-0.1 10^3/uL Immature Granulocyte # (Auto) 0.0 0.0-0.1 10^3/uL Sodium Level 140 135-145 MMOL/L Potassium Level 3.7 3.6-5.0 MMOL/L Chloride Level 108 H 98-107 MMOL/L Carbon Dioxide Level 25 21-32 MMOL/L Anion Gap 7 5-14 MMOL/L Blood Urea Nitrogen 12 7-18 MG/DL Creatinine 0.73 0.60-1.30 MG/DL Estimat Glomerular Filtration Rate 103 BUN/Creatinine Ratio 16 Glucose Level 88 70-105 MG/DL Calcium Level 9.0 8.5-10.1 MG/DL Corrected Calcium 8.9 8.5-10.1 MG/DL Total Bilirubin 0.2 0.1-1.0 MG/DL Aspartate Amino Transf (AST/SGOT) 18 5-34 U/L Alanine Aminotransferase (ALT/SGPT) 14 0-55 U/L Alkaline Phosphatase 55 40-136 U/L Total Protein 7.1 6.4-8.2 GM/DL Albumin 4.1 3.2-4.5 GM/DL Urine Color RED H Urine Clarity SL CLOUDY Urine pH 6.5 5-9 Urine Specific [place] <=1.005 1.016-1.022 Urine Protein 2+ H NEGATIVE Urine Glucose (UA) NEGATIVE NEGATIVE Urine Ketones NEGATIVE NEGATIVE Urine Nitrite NEGATIVE NEGATIVE Urine Bilirubin NEGATIVE NEGATIVE Urine Urobilinogen 0.2 < = 1.0 MG/DL Urine Leukocyte Esterase TRACE H NEGATIVE Urine RBC (Auto) 3+ H NEGATIVE Urine RBC >100 H /HPF Urine WBC 0-2 /HPF Urine Squamous Epithelial Cells 0-2 /HPF Urine Crystals NONE /LPF Urine Bacteria NEGATIVE /HPF Urine Casts NONE /LPF Urine Mucus NEGATIVE /LPF Urine Culture Indicated NO My Orders Orders - MEE JOSHI APRN Cbc With Automated Diff (11/04/22 11:01) Comprehensive Metabolic Panel (11/04/22 11:01) Ua Culture If Indicated (11/04/22 11:01) Urine Bedside (11/04/22 11:01) Vital Signs/I&O 11/04/22 09:58 Temp 35.8 Pulse 68 Resp 19 B/P (MAP) 115/86 (96) O2 Delivery Room Air Capillary Refill : Less Than 3 Seconds Blood Pressure Mean: 96 Progress Note : Progress Note Patient seen and evaluated, resting comfortably in bed, no acute distress. Based on exam and symptoms, work-up initiated including CBC, CMP, UA, urine . Will perform a pelvic exam to evaluate vaginal bleeding. 1129 Labs reviewed. CBC grossly normal, hemoglobin normal 13.7, hematocrit normal 40. CMP grossly normal, chloride slightly elevated 108. UA shows 2+ protein, trace leukocytes, 3+ RBCs, 0-2 WBCs, 0-2 squamous epithelial cells, no bacteria. RBCs in urine is likely due to contamination from vaginal bleeding. 1139 pelvic exam completed. Unable to visualize cervix due to prolapsed uterus. Small amount of blood in vaginal canal. Patient reports she had just went to the restroom and clean herself prior to the exam. I spoke with Dr. Lazar, SPANISH INTERPRETER/TRANSLATOR, regarding patient. He is the provider who is performing the h ysterectomy. He recommends starting patient on progesterone to help with the bleeding. Results discussed with patient. Discharge plan discussed with patient. Patient agreeable to discharge plan. Discharge instructions and return precautions provided. Departure Impression Primary Impression: Vaginal bleeding Disposition: HOME, SELF-CARE Condition: Stable Departure-Patient Inst. Decision time for Depature: 11:44 Referrals: NO,LOCAL PHYSICIAN (PCP/Family) Primary Care Physician Patient Instructions: Heavy periods Add. Discharge Instructions: Take progesterone once daily. Call Dr. Lazar in a couple of days if bleeding does not improve. Continue with your scheduled hysterectomy. Return for worsening symptoms, or any other new new or concerning symptoms. All discharge instructions reviewed with patient and/or family. Voiced understanding. Scripts Medroxyprogesterone Acetate (Medroxyprogesterone Acetate) 10 Mg Tablet 10 MG PO DAILY for 10 Days, #10 TAB 0 Refills Prov: MEE JOSHI APRN 11/04/22 Work/School Note: Work Release Form Date Seen in the Emergency Department: Nov 04, 2022 Return to Work: Nov 05, 2022 Restrictions: No Restrictions MEE JOSHI APRN Nov 04, 2022 11:10
[2022-11-04 11:11] LABS: ALBUMIN 4.1 GM/DL (3.2-4.5); POTASSIUM 3.7 MMOL/L (3.6-5.0)
[2022-11-04 11:13] LABS: TOTAL PROTEIN 7.1 GM/DL (6.4-8.2)
[2022-11-04 11:15] LABS: BILIRUBIN,TOTAL 0.2 MG/DL (0.1-1.0)
[2022-11-04 11:17] LABS: CREATININE SERUM 0.73 MG/DL (0.60-1.30)
[2022-11-04 11:17] LABS: BACTERIA,URINE NEGATIVE /HPF; RBC,URINE >100 /HPF; SQUAMOUS EPITHELIAL CELL,UR 0-2 /HPF; WBC,URINE 0-2 /HPF
[2022-11-04] MEDS ORDERED: MEDR10TA9 PO (12:01)
[2022-11-04 12:14] VITALS: BP 134/72
== END 2022-11-04 12:14 | disposition home or self-care (01) ==
LOC: EDUNIT# 09:48 → ER 09:50
DX: N93.9 Abnormal uterine and vaginal bleeding, unspecified (principal); F17.210 Nicotine dependence, cigarettes, uncomplicated
CPT/HCPCS: 36415; 80053; 81000; 84703; 85025; 99282

== ENCOUNTER 2022-11-05 05:27 | Outpatient (CLI) | payer BC ==
[~2022-11-05] VITALS: Ht 157.5 cm; Wt 81.1 kg
[~2022-11-05 05:27] MED LIST changes: +MEDR10TA9 PO
[2022-11-06] MEDS ORDERED: PROG200C10 PO (12:55)
== END 2022-11-07 11:51 | disposition home or self-care (01) ==
LOC: PREOP 05:27
PROVIDERS: ATTEND Obstetrics & Gynecology
DX: Z01.818 Encounter for other preprocedural examination (principal)

== ENCOUNTER 2022-11-12 06:04 | Day surgery (SDC) | payer BC ==
[2022-11-12] VITALS (12 sets, daily range): BP systolic 92–121; BP diastolic 50–80
[~2022-11-12] VITALS: Ht 157 cm; Wt 81.1 kg
[~2022-11-12 06:04] MED LIST changes: +PROG200C10 PO
[2022-11-12] MEDS ORDERED: ceFAZolin INJECTION 2,000 MG in NS (IVPB) 50 ML IV ONE (06:30)
[2022-11-12] MEDS ORDERED: metroNIDAZOLE 500MG/100ML IVPB 100 ML IV ONE (06:30)
[2022-11-12 06:44] LABS: BASOPHILS % (AUTO) 1 % (0-10); EOSINOPHILS # (AUTO) 0.2 10^3/uL (0.0-0.3); EOSINOPHILS % (AUTO) 3 % (0-10); HEMATOCRIT 43 % (35-52); HEMOGLOBIN 14.3 g/dL (11.5-16.0); LYMPHOCYTES # (AUTO) 2.2 10^3/uL (1.0-4.0); LYMPHOCYTES % (AUTO) 38 % (12-44); MEAN CORPUSCULAR HEMOGLOBIN 31 pg (25-34); MEAN CORPUSCULAR HGB CONC 34 g/dL (32-36); MEAN CORPUSCULAR VOLUME 91 fL (80-99); MONOCYTES # (AUTO) 0.4 10^3/uL (0.0-1.0); MONOCYTES % (AUTO) 7 % (0-12); NEUTROPHILS % (AUTO) 51 % (42-75); PLATELET COUNT 311 10^3/uL (130-400); WHITE BLOOD COUNT 5.8 10^3/uL (4.3-11.0)
[2022-11-12] MEDS: LACTATED RINGERS 1,000 ML IV PRN ×2 (06:57→07:50)
[2022-11-12] MEDS ORDERED: NEOSTIGMINE (BLOXIVERZ ) 1 MG/1ML 10 ML VIAL ONE (07:03)
[2022-11-12] MEDS ORDERED: fentaNYL INJ 100 MCG/2 ML AMP ONE (07:03)
[2022-11-12] MEDS ORDERED: LIDOCAINE PF 2% 5 ML (XYLOCAINE) VIAL ONE (07:03)
[2022-11-12] MEDS ORDERED: MIDAZOLAM 2 MG/2 ML (VERSED) VIAL ONE (07:03)
[2022-11-12] MEDS ORDERED: GLYCOPYRROLATE 0.2 MG/ML (ROBINUL) 2 ML VIAL ONE (07:03)
[2022-11-12] MEDS ORDERED: ONDANSETRON 4 MG/2 ML (SDV) Z0FRAN ONE (07:03)
[2022-11-12] MEDS ORDERED: ROCURONIUM 50 MG/5 ML (ZEMURON) VIAL IV ONE (07:03)
[2022-11-12] MEDS ORDERED: proPOfol 200 MG/20 ML (DIPRIVAN) VIAL IV ONE (07:03)
[2022-11-12] MEDS ORDERED: BUPIVACAINE 0.25% 30 ML (SENSORCAINE) VIAL ONE (07:11)
[2022-11-12 07:13] LABS: ALBUMIN 4.2 GM/DL (3.2-4.5); POTASSIUM 3.9 MMOL/L (3.6-5.0)
[2022-11-12 07:14] LABS: CALCIUM 8.8 MG/DL (8.5-10.1)
[2022-11-12 07:15] LABS: TOTAL PROTEIN 7.1 GM/DL (6.4-8.2)
[2022-11-12 07:17] LABS: BILIRUBIN,TOTAL 0.5 MG/DL (0.1-1.0)
[2022-11-12 07:19] LABS: CREATININE SERUM 0.77 MG/DL (0.60-1.30)
--- NOTE | 2022-11-12 07:23 | History & Physical-Surgical ---
HPO-Surgical History of Present Illness Chief Complaint: Prolapse of pelvic organs vaginally Diagnosis/Surgical Indication: POP, CYSTOCELE, STRESS INCONTINENCE Procedure: RATLH W/POSS BSO & POSS A & P REPAIR Date of Surgery: Nov 12, 2022 Weight (Pounds): 160 Weight (Ounces): 0 Height (Feet): 5 Height (Inches): 1.00 Allergies and Home Medications Allergies Coded Allergies: hydrocodone (Verified Adverse Reaction, Unknown, n/v, 11/06/22) Patient Home Medication List Home Medication List Reviewed: Yes Progesterone,Micronized (Progesterone) Unknown Strength Capsule, Unknown Dose PO, (Reported) Entered as Reported by: HORACE ROQUE on 11/06/22 1255 Discontinued Medications Cephalexin (Cephalexin) 500 Mg Capsule, 500 MG PO BID Discontinued Reason: No Longer Taking Prescribed by: Irlanda Ward on 02/02/22 2144 Medroxyprogesterone Acetate (Medroxyprogesterone Acetate) 10 Mg Tablet, 10 MG PO DAILY Discontinued Reason: No Longer Taking Prescribed by: Mee Joshi on 11/04/22 1201 Past Cikuskq-Dekoiz-Dzbtyi Hx Patient Social History Smoking Status: Current Everyday Smoker 2nd Hand Smoke Exposure: Yes Recent Hopitalizations: No Immunizations Up To Date Tetanus Booster (TDap): Unknown Seasonal Allergies Seasonal Allergies: No Surgeries Yes (D/C, TUBAL LIGATION) Gallbladder Respiratory No Cardiovascular No Neurological No Genitourinary No Gastrointestinal No Musculoskeletal No Endocrine History of Endocrine Disorders: No HEENT History of HEENT Disorders: No Cancer No Psychosocial History of Psychiatric Problem: No Integumentary History of Skin or Integumenta: No Blood Transfusions History of Blood Disorders: No Family Medical History Significant Family History: No Pertinent Family Hx Exam Vital Signs Vital Signs 11/12/22 06:35 Temp 36.8 Pulse 53 Resp 18 B/P (MAP) 103/78 (86) Pulse Ox 99 O2 Delivery Room Air Capillary Refill : Labs Laboratory Tests Test 11/12/22 06:31 Range/Units White Blood Count 5.8 4.3-11.0 10^3/uL Red Blood Count 4.68 3.80-5.11 10^6/uL Hemoglobin 14.3 11.5-16.0 g/dL Hematocrit 43 35-52 % Mean Corpuscular Volume 91 80-99 fL Mean Corpuscular Hemoglobin 31 25-34 pg Mean Corpuscular Hemoglobin Concent 34 32-36 g/dL Red Cell Distribution Width 13.5 10.0-14.5 % Platelet Count 311 130-400 10^3/uL Mean Platelet Volume 9.0 9.0-12.2 fL Immature Granulocyte % (Auto) 0 % Neutrophils (%) (Auto) 51 42-75 % Lymphocytes (%) (Auto) 38 12-44 % Monocytes (%) (Auto) 7 0-12 % Eosinophils (%) (Auto) 3 0-10 % Basophils (%) (Auto) 1 0-10 % Neutrophils # (Auto) 3.0 1.8-7.8 10^3/uL Lymphocytes # (Auto) 2.2 1.0-4.0 10^3/uL Monocytes # (Auto) 0.4 0.0-1.0 10^3/uL Eosinophils # (Auto) 0.2 0.0-0.3 10^3/uL Basophils # (Auto) 0.0 0.0-0.1 10^3/uL Immature Granulocyte # (Auto) 0.0 0.0-0.1 10^3/uL Sodium Level 139 135-145 MMOL/L Potassium Level 3.9 3.6-5.0 MMOL/L Chloride Level 109 H 98-107 MMOL/L Carbon Dioxide Level 22 21-32 MMOL/L Anion Gap 8 5-14 MMOL/L Blood Urea Nitrogen 11 7-18 MG/DL Creatinine 0.77 0.60-1.30 MG/DL Estimat Glomerular Filtration Rate 96 BUN/Creatinine Ratio 14 Glucose Level 91 70-105 MG/DL Calcium Level 8.8 8.5-10.1 MG/DL Corrected Calcium 8.6 8.5-10.1 MG/DL Total Bilirubin 0.5 0.1-1.0 MG/DL Aspartate Amino Transf (AST/SGOT) 22 5-34 U/L Alkaline Phosphatase 64 40-136 U/L Total Protein 7.1 6.4-8.2 GM/DL Albumin 4.2 3.2-4.5 GM/DL General Appearance: Alert, Oriented X3 HEENT: Atraumatic Respiratory: Clear to Auscultation Cardiovascular: Regular Rate Abdominal: Normal Bowel Sounds Neuro: Normal Gait Psych/Mental Status: Mental Status NL Assessment/Plan Admission Diagnosis Diagnosis: POP Cystocele Rectocele P: RATLH with poss BSO and anterior/posterior colporraphy Admission Status: Observation LIDIA MARINELLI DO Nov 12, 2022 07:23
[2022-11-12] MEDS ORDERED: HYDROmorphone 2 MG/ML VIAL (DILAUDID) IV PRN (07:30)
[2022-11-12] MEDS ORDERED: ANTACID SUSP 30 ML UDC (MYLANTA) PO PRN (07:30)
[2022-11-12] MEDS ORDERED: ZOLPIDEM 5 MG (AMBIEN) TAB PO PRN (07:30)
[2022-11-12] MEDS ORDERED: BENZOCAINE LOZENGES 1 EACH LOZENGE MM PRN (07:30)
[2022-11-12] MEDS ORDERED: SIMETHICONE 80 MG (MYLICON) CHEW PO PRN (07:30)
--- NOTE | 2022-11-12 07:31 | Discharge Inst-Women's Service ---
Discharge Inst-Women's Serv Depart Medication/Instructions New, Converted or Re-Newed RX: Transmitted to Pharmacy Problems Reviewed?: Yes Consults/Follow Up Additional Follow Up: Yes Orders/Referrals Dr. Lazar in 7-10 days and in 8 weeks Activity Activity: Activity as Tolerated Driving Instructions: No Driving for 1 Week NO SMOKING: NO SMOKING Nothing Inside Vagina: No Douching, No [place], No Tampons Diet Discharge Diet: No Restrictions Symptoms to Report to : Bleeding Excessive, Pain Increased, Fever Over 101 Degrees F, Vaginal Bleeding Increase, Questions/Concerns For Any Problems or Questions: Contact Your Physician Skin/Wound Care Infection Signs and Symptoms: Increased Redness, Foul Odor of Wound, Increased Drainage, Skin Itchy or Has a Rash, Increased Swelling, Temperature Above 101 F Operative Area Clean and Dry: Keep Incision Clean/Dry Stitches/Janet/Dermabond: Dermabond, Care of Stitches Bathing Instructions: LIDIA Wilder DO Nov 12, 2022 07:31
[2022-11-12] MEDS ORDERED: TRM50T PO (07:32)
[2022-11-12] MEDS ORDERED: IBUP-1773 PO (07:32)
[2022-11-12] MEDS ORDERED: DOCU100C37 PO (07:32)
[2022-11-12] MEDS ORDERED: SIME80TA16 PO (07:32)
[2022-11-12] MEDS ORDERED: BUPIVACAINE 0.25% 30 ML (SENSORCAINE) VIAL INJ ONE (07:58)
[2022-11-12] MEDS ORDERED: NS (IVPB) 100 ML ONE (08:46)
[2022-11-12] MEDS ORDERED: VASOPRESSIN INJECTION 20 UNIT/ML VIAL ONE (08:46)
[2022-11-12] MEDS ORDERED: ESTROGENS CONJ. CREAM 30 GM (PREMARIN) TUBE ONE (08:46)
[2022-11-12] MEDS ORDERED: ESTROGENS CONJ. CREAM 30 GM (PREMARIN) TUBE VG ONE (08:54)
[2022-11-12] MEDS: VASOPRESSIN INJECTION 20 UNIT/ML VIAL INJ ONE (08:54)
[2022-11-12] MEDS ORDERED: NS 100 ML (IVPB) BAG INJ ONE (08:56)
[2022-11-12] MEDS ORDERED: HYDROmorphone 2 MG/ML VIAL (DILAUDID) ONE (09:13)
[2022-11-12] MEDS ORDERED: SEVOFLURANE (ULTANE) 15 ML INHAL SOLN ONE (09:29)
[2022-11-12] MEDS ORDERED: KETOROLAC 30 MG/ML VIAL ONE (09:47)
[2022-11-12] MEDS: KETOROLAC 30 MG/ML VIAL IVP PRN ×3 (09:49→22:31)
[2022-11-12] MEDS ORDERED: morphine INJ 10 MG/ML 1ML (SYR OR VIAL) IVP ONE (10:00)
[2022-11-12] MEDS ORDERED: ONDANSETRON 4 MG/2 ML (SDV) Z0FRAN IVP PRN (10:00)
[2022-11-12] MEDS ORDERED: HYDROmorphone 2 MG/ML VIAL (DILAUDID) IV ONE (10:00)
[2022-11-12] MEDS: LACTATED RINGERS 1,000 ML IV SCH ×2 (12:40→17:20)
[2022-11-12] MEDS: DOCUSATE SODIUM 100 MG (COLACE) CAP PO PRN ×2 (12:41→21:17)
[2022-11-12] MEDS: ONDANSETRON 4 MG/2 ML (SDV) Z0FRAN IV PRN ×2 (13:29→19:04)
--- NOTE | 2022-11-12 14:34 | Anesthesia-General Post-Op ---
General Patient Condition Mental Status/LOC: Same as Preop Cardiovascular: Satisfactory Nausea/Vomiting: Absent Respiratory: Satisfactory Pain: Controlled Complications: Absent Post Op Complications Complications None Follow Up Care/Instructions Patient Instructions None needed. Anesthesia/Patient Condition Patient Condition Patient is doing well. She does C/O some abdominal pain which is to be expected and and had some nausea while eating. She has stable vital signs, no apparent adverse anesthesia problems. No complications reported per nursing. SARAI COLVIN DO Nov 12, 2022 14:34
--- NOTE | 2022-11-12 20:30 | OPERATIVE REPORT ---
DATE OF SERVICE: 11/12/2022 PREOPERATIVE DIAGNOSES: 1. A 46-year-old female with pelvic organ prolapse. 2. Cystocele. 3. Rectocele. POSTOPERATIVE DIAGNOSES: 1. A 46-year-old female with pelvic organ prolapse. 2. Cystocele. 3. Rectocele. PROCEDURE: 1. Robotic-assisted total laparoscopic hysterectomy with bilateral salpingectomy. 2. Anterior colporrhaphy. 3. Posterior colporrhaphy with perineoplasty. SURGEON: David Marinelli DO NECKTIE STITCHER: Aleyda Guzmán DNP was necessary for manipulation and retraction throughout the procedure. ANESTHESIA: General endotracheal. ESTIMATED BLOOD LOSS: 150 mL URINE OUTPUT: 100 mL clear at the end of the procedure. FLUIDS: 1600 mL lactated Ringer's solution. FINDINGS: Grade III cystocele with prolapse of the cervix to the vaginal introitus, a grade II-III rectocele. Grossly normal appearing bilateral ovaries, fallopian tubes, and uterus. SPECIMEN SENT: Uterus, bilateral fallopian tubes. INDICATIONS FOR PROCEDURE: This 46-year-old female, was a consultation to me from nurse practitioner for ongoing issues with pelvic organ prolapse and discomfort with pelvic organ prolapse. The patient reports having to reduce the cervix and uterus at the time of defecation and urination. She wished to proceed with definitive measures for this. We discussed the alternative of pessary; however, the patient is sexually active and is young enough that she is a good surgical candidate. She wished to proceed with a surgical option of hysterectomy. We also discussed anterior and posterior colporrhaphy. After all of her questions were answered, she was agreeable to proceed. Consent was obtained in the preoperative area and the patient was taken to the operating room. OPERATIVE REPORT IN DETAIL: Once in the operating room, anesthesia was administered and found to be adequate, was placed in dorsal lithotomy position, prepped and draped in normal sterile fashion. A timeout was performed. Caraballo catheter was placed using sterile technique. A weighted speculum inserted to the patient's vagina. Ring retractor was utilized. Cervix was grasped at 12 o'clock position using a long Allis clamp. I then placed an 0 Vicryl suture the anterior lip of the cervix and used as my retraction from that point forward. I then gently sound the uterine cavity and found to be 8 cm. I selected an 8 cm MARGUERITE uterine manipulator tip and a 3.5 cm colpotomy ring. The manipulator tip was advanced into the uterus with the balloons deployed and the colpotomy ring is advanced around the vaginal fornix. I then removed all the other instruments from the patient's vagina, performed change of gloves. I turned my attention to the abdomen where subcostally at the midclavicular line on the left side, I introduced the Veress needle until intraperitoneal placement was confirmed using saline drop test. An opening pressure of 3 mmHg was noted. I proceeded with CO2 insufflation to max pressure of 15 mmHg, at which point I make an 8 mm infraumbilical incision with a knife and directed blunt, laparoscopic da Joanna camera trocar through the incision until intraperitoneal placement was confirmed using da Joanna laparoscope. There was no evidence of damage upon my entry site. Brief scan of the upper abdominal anatomy appears to be grossly normal and the Veress was removed at that point. I then had the patient placed in steep Trendelenburg. I am able to visualize all my pelvic anatomy as defined in my findings above. I placed 2 lateral trocars using both 8 mm trocars approximately 8 cm lateral to my infraumbilical trocar. Once both of these trocars were in place, I bring in the da Joanna robot and docked in appropriate fashion. Placing the SynchroSeal device in left hand, monopolar mariam in the right hand, I performed the following dissection bilaterally:Starting at the uteroovarian ligament, I sealed and transected using the finger SynchroSeal device. I then created a window in the mesosalpinx and take this laterally down the mesosalpinx, sealing as I go using SynchroSeal device. I then grasped the round ligament, which I sealed and transect using the SynchroSeal device, which allowed me to grasp the broad ligament, which I sealed and transect down to the level of the lower uterine segment, at which point I the anterior and posterior leaflets of the broad ligament anteriorly. The anterior vaginal fornix posteriorly was taken around the posterior vaginal fornix. This allows me to skeletonize the uterine vessels laterally, which I sealed and transected using the SynchroSeal device. I then created a colpotomy at 12 o'clock position using monopolar mariam and take this circumferentially around the vaginal fornix amputating the cervix away from the vagina. I then removed the entire specimen through the vagina. I then closed the vaginal cuff using 2-0 V-Loc in a running fashion, after which there was found from any of my dissection planes. I undocked da Joanna robot and proceeded with remainder of the case laparoscopically. I then copiously irrigated the pelvis using normal saline once again and no active bleeding noted from any of my dissection planes. I placed Surgiflo hemostatic agent over all my planes of dissection and the vaginal cuff and then I had the patient was taken out of steep Trendelenburg. I removed the lateral trocars under direct visualization, laparoscope. The infraumbilical trocars left in place to release the remainder of the insufflation and to introduce 10 mL of 0.25% Marcaine in peritoneal cavity for postoperative pain management. I then removed this trocar as well. The skin was reapproximated using 4-0 Monocryl and interrupted subcuticular stitches. Dermabond was applied to all of the incisions and Band-Aids were placed over the incision as well. I then performed a change of gloves. I turned my attention back down to the vagina where I addressed the cystocele first. I infiltrated the mucosa and submucosa of the cystocele margin using vasopressin, a concentration of 20 units in 100 mL of normal saline. Once this was done, I made an incision at the distal margin of the cystocele through the mucosa into the submucosa. I then undermined down the midline of the cystocele defect using Metzenbaum scissors and incised down the midline of the cystocele using Metzenbaum scissors. This allowed me to grasp the lateral aspects of the submucosa elevated, and dissected off the underlying vesicovaginal fascia. This was done at the lateral margins of the cystocele, at which point I plicate the vesicovaginal fascia using 2-0 Vicryl suture in interrupted fashion, reducing the cystocele. I then trimmed the excess vaginal mucosa and reapproximate the mucosa using 3-0 Vicryl suture in a running locked fashion, after which there was no active bleeding from the cystocele. I then taped my attention to the rectocele where I infiltrated the margins of the rectocele in similar fashion using the same concentration of vasopressin. I also infiltrated the perineal body. I began the procedure by making an incision of the size in the shape of a triangle down the peritoneum and then undermined down the mucocutaneous junction using the Metzenbaum scissors down the midline of the rectocele. Once this was undermined down all the way to the proximal margin of the defect, I make an incision down the same undermining tissue using the Metzenbaum scissors. I am then able to elevate the lateral aspects of the mucosa and dissected off the underlying rectovaginal fascia. The excess mucosa was trimmed and the fascia was plicated using 2-0 Vicryl suture in interrupted fashion. The mucosa itself was then reapproximated using 3-0 Vicryl in a running locked fashion including the peritoneum, which is reapproximated with reinforcement at the bulbocavernosus muscles using a 2-0 Vicryl suture in a crown stitch fashion. The skin of the perineum was reapproximated with running subcuticular after which there was no active bleeding noted from any of my dissection planes. I then packed the vagina using Premarin-soaked vaginal packing. I leave the Caraballo catheter in place. The patient tolerated the procedure well and was taken to recovery in stable condition. Lap and sponge count was correct at the end of the procedure. Instrument counts correct as well. Two grams of Ancef and 500 mg of Flagyl were given preoperatively for infection prophylaxis. Job ID: [id number] DocumentID: [id number] Dictated Date: 11/12/2022 13:19:19 Certified Adaptive Physical Educator Date: 11/12/2022 20:28:00 Dictated By: DAVID MARINELLI DO
[2022-11-13 00:35] VITALS: BP 86/47
[2022-11-13] MEDS: LACTATED RINGERS 1,000 ML IV SCH (01:21)
[2022-11-13 04:33] VITALS: BP 90/55
[2022-11-13] MEDS: KETOROLAC 30 MG/ML VIAL IVP PRN (04:33)
[2022-11-13 07:30] VITALS: BP 112/65
[2022-11-13] MEDS: DOCUSATE SODIUM 100 MG (COLACE) CAP PO PRN (08:03)
[2022-11-13 10:45] VITALS: BP 112/65
== END 2022-11-13 10:45 | disposition home or self-care (01) ==
LOC: SDC 06:04 → WS 10:40 → SDC 11-13 10:45
PROVIDERS: ATTEND Obstetrics & Gynecology
DX: N81.2 Incomplete uterovaginal prolapse (principal); N80.03 Adenomyosis of the uterus; D25.1 Intramural leiomyoma of uterus; D25.2 Subserosal leiomyoma of uterus; N83.8 Other noninflammatory disorders of ovary, fallopian tube and broad ligament; N39.3 Stress incontinence (female) (male); F17.210 Nicotine dependence, cigarettes, uncomplicated
CPT/HCPCS: 36415; 80053; 84703; 85025; 86850; 86900; 86901; 87081